=== PATIENT | male | born 1960 | race African-American/Black ===

== ENCOUNTER 2021-02-10 16:35 | Inpatient (IN) | payer OTHER ==
[~2021-02-10] VITALS: Ht 167.6 cm; Wt 70.8 kg
[2021-02-10 17:13] LABS: BG BASE EXCESS -1.1 mmol/L (-2.0-2.0); BG CARBOXYHEMOGLOBIN 1.7 % (0.5-1.5); BG DEOXYHEMOGLOBIN 5.6 % (0.0-5.0); BG FRACTION INSPIRED OXYGEN 21; BG HCO3 ACT 20.7 mmol/L (22.0-26.0); BG METHEMOGLOBIN 0.3 % (0.0-1.5); BG OXYGEN SATURATION 94.3 % (92.0-98.5); BG OXYHEMOGLOBIN 92.4 % (94.0-97.0); BG PCO2 28.7 mmHg (35.0-45.0); BG PH 7.476 (7.350-7.450); BG PO2 63.8 mmHg (75.0-100.0); BG SAMPLE SITE RIGHT RADIAL; BG TOTAL HEMOGLOBIN 18.2 g/dL (12.0-18.0); BG VENT MODE ROOM AIR
[2021-02-10] MEDS ORDERED: AZITHROMYCIN 500MG/250ML 250 ML IV ONE (18:00)
[2021-02-10] MEDS ORDERED: CEFTRIAXONE 1 G PREMIX 50 ML IV ONE (18:00)
[2021-02-10 19:15] LABS: HEMATOCRIT. 53.9 % (42.0-52.0); HEMOGLOBIN. 17.3 g/dL (14.0-18.0); MEAN CORPUSCULAR HEMOGLOBIN 30.8 pg (28.0-32.0); MEAN CORPUSCULAR VOLUME 96.1 fL (80.0-94.0); MEAN PLATELET VOLUME 11.2 fl (7.4-10.4); PLATELET 133 x1000/uL (130-400); RED CELL DISTRIBUTION WIDTH 14.5 % (11.6-14.6)
[2021-02-10 19:31] LABS: CHLORIDE 99 mEq/L (98-107)
[2021-02-10] MEDS ORDERED: DEXAMETHASONE 4MG/ML 1ML VIAL IV ONE (20:15)
[2021-02-10 21:28] LABS: CLARITY URINE CLEAR (CLEAR); COLOR URINE DARK YELLOW (YELLOW); KETONES URINE TRACE (NEGATIVE); LEUKOCYTE ESTERASE URINE TRACE (NEGATIVE); NITRITE URINE NEGATIVE (NEGATIVE); OCCULT BLOOD URINE 1+ (NEGATIVE); PROTEIN URINE 2+ (NEGATIVE); SPECIFIC GRAVITY URINE 1.023 (1.005-1.030)
[2021-02-10 23:41] LABS: PLATELET ESTIMATE NORMAL
[2021-02-11] MEDS ORDERED: CEFTRIAXONE 1 G PREMIX 50 ML IV SCH (13:00)
[2021-02-11] MEDS ORDERED: ACETAMINOPHEN 325MG TABLET PO PRN (13:00)
[2021-02-11] MEDS ORDERED: POTASSIUM CHLORIDE 20MEQ TABLET SR PO NR (13:00)
[2021-02-11] MEDS ORDERED: ONDANSETRON HCL 4MG/2ML INJ IV PRN (13:00)
[2021-02-11] MEDS ORDERED: TRAMADOL 50MG TABLET PO PRN (13:00)
[2021-02-11] MEDS ORDERED: NALOXONE HCL 0.4MG/ML VIAL IV PRN (13:15)
[2021-02-11 16:54] VITALS: BP 146/86
[2021-02-11 17:02] VITALS: BP 146/86
[2021-02-11] MEDS ORDERED: PNEUMOCOCCAL 23-VAL P-SAC VAC 0.5 ML IM ONE (17:30)
[2021-02-11] MEDS ORDERED: INFLUENZA VACCINE 05/PF 0.5 ML SYRINGE IM ONE (17:30)
[2021-02-11] MEDS ORDERED: CEFTRIAXONE 1,000 MG in DEXTROSE 5% WATER 50 ML IV SCH (18:00)
[2021-02-11 20:00] VITALS: BP 130/81
[2021-02-11] MEDS ORDERED: ENOXAPARIN 40MG/0.4ML SYR SUBCUT SCH (20:00)
[2021-02-12] VITALS: BP 97/76
[2021-02-12 04:00] VITALS: BP 127/72
[2021-02-12] MEDS ORDERED: LEVO500T89 MT (07:15)
[2021-02-12 07:39] LABS: HEMATOCRIT. 47.6 % (42.0-52.0); HEMOGLOBIN. 15.4 g/dL (14.0-18.0); MEAN CORPUSCULAR VOLUME 96.1 fL (80.0-94.0); MEAN PLATELET VOLUME 12.2 fl (7.4-10.4); PLATELET 185 x1000/uL (130-400); RED BLOOD CELL COUNT 4.96 mill/uL (4.7-6.1); RED CELL DISTRIBUTION WIDTH 14.5 % (11.6-14.6)
[2021-02-12 08:00] VITALS: BP 145/89
[2021-02-12 08:20] LABS: CHLORIDE 99 mEq/L (98-107)
[2021-02-12 11:39] VITALS: BP 145/89
[2021-02-12 17:25] LABS: ATYPICAL LYMPHOCYTES 4
[2021-02-12 17:26] LABS: PLATELET ESTIMATE NORMAL
== END 2021-02-12 14:20 | disposition home or self-care (01) | DRG 177 ==
LOC: ER 16:35 → EDBEDREQ 18:45 → EDBEDREQTM 18:45 → EDBEDREQSVC 18:45 → 7WST 23:36 → EDBEDREQ 23:37 → EDBEDREQTM 23:37 → ENRESERV 02-11 15:42 → 7WST 02-11 18:09
PROVIDERS: ADMIT Internal Medicine Nephrology; ATTEND Internal Medicine Nephrology
DX: U07.1 COVID-19 (principal); J12.82 Pneumonia due to coronavirus disease 2019; E44.1 Mild protein-calorie malnutrition; E87.6 Hypokalemia; F17.200 Nicotine dependence, unspecified, uncomplicated; Z68.25 Body mass index [BMI] 25.0-25.9, adult
CPT/HCPCS: 36415; 36600; 71045; 80048; 80053; 81003; 82375; 82805; 82962; 83605; 84145; 84484; 85025; 87426; 93005; 99285; J0456; J0696; J1100; J1650; J7060; U0003; U0005